=== PATIENT | female | born 1950 | race Caucasian/White ===

== ENCOUNTER 2021-02-14 08:26 | Outpatient (REF) | payer MEDICARE, SELFPAY ==
--- NOTE | ~2021-02-14 | CT_ITS ---
EXAMINATION: CT ANKLE WITHOUT CONTRAST, LEFT CLINICAL INFORMATION: Follow-up ankle fracture. Severely comminuted, burst fracture of calcaneus, left, with innumerable fracture components. COMPARISON: Outside foot and ankle radiographs dated 02/08/2021. TECHNIQUE: Contiguous axial CT images of the left ankle were obtained without contrast. Multiplanar reformats were provided and reviewed. This CT examination was performed using dose optimization techniques as appropriate, variously including the following: *Automated exposure control *Adjustment of mA and/or kV according to patient size (this includes techniques or standardized protocols for targeted exams where dose is matched to indication/reason for exam; i.e. extremities or head) *Use of iterative reconstruction technique DLP: 118 mGy-cm. FINDINGS: There is a comminuted, burst fracture involving the calcaneus with innumerable oblique components. Fracture lines contact both the dorsal and plantar surface of the posterior calcaneus as well as extending to the anterior and posterior subtalar joint surfaces. Multiple fracture lines extend to the calcaneocuboid joint surface. The dominant fracture fragments are oblique extending from the medial calcaneal body to the calcaneocuboid articular surface. No additional fracture. No dislocation. Mild joint space narrowing with tiny marginal osteophytes at the talonavicular joint. No concerning lytic or blastic osseous lesion. Circumferential soft tissue swelling. The visualized muscles and tendons are grossly intact. However, evaluation is limited on CT examination. CT/CT ankle LT wo con IMPRESSION: Severely comminuted and mildly displaced burst fracture of the calcaneus with innumerable oblique fracture components. Fracture lines contact the subtalar joints and the calcaneocuboid joint. Circumferential soft tissue swelling.
== END 2021-02-14 08:27 | disposition home or self-care (01) ==
LOC: HO.CT 08:26
PROVIDERS: Visit Provider Orthopaedic Surgery
DX: S92.062D Displaced intraarticular fracture of left calcaneus, subsequent encounter for fracture with routine healing (principal)
CPT/HCPCS: 73700